=== PATIENT | male | born 1955 | race Caucasian/White ===

== ENCOUNTER 2020-07-04 12:38 | Outpatient (CLI) | payer MEDICARE, OTHER ==
--- NOTE | 2020-07-04 15:31 | EEG ---
DATE OF SERVICE: DESCRIPTION OF THE RECORD: The waking background is a medium amplitude 10 hertz alpha frequency. The patient became drowsy during the study. Hyperventilation and photic stimulation were unremarkable. No epileptiform features were seen. IMPRESSION: This is a normal awake and drowsy EEG. Job ID: [id number]
== END 2020-07-04 12:39 | disposition home or self-care (01) ==
LOC: EEG 12:38
PROVIDERS: ATTEND Psychiatry & Neurology Neurology
DX: R41.3 Other amnesia (principal)
CPT/HCPCS: 95816

== ENCOUNTER 2020-07-31 08:47 | Day surgery (SDC) | payer MEDICARE, OTHER ==
[2020-07-30 14:40] VITALS: BMI 26.5
[2020-07-31 09:52] VITALS: BP 153/79; TEMP 97.2
[2020-07-31] MEDS ORDERED: Acetaminophen 500 MG TAB ONE (10:18)
--- NOTE | 2020-07-31 11:39 | RAD ---
Exam: Lumbar puncture with fluoroscopic guidance HISTORY: Hydrocephalus. 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 Mild loss of dis c space and SPECT formation. Straightening of lumbar lordosis. No spondylolisthesis or spondylolysis. Successful lumbar puncture. Total of 30 cc of clear CSF was collected. No immediate or post procedure complication TECHNIQUE: Consent obtained to perform a lumbar puncture with fluoroscopic guidance. Patient's back w as evaluated. The L3-L4 level was deemed appropriate. Skin was prepped and draped in a sterile fashion. 1% lidocaine, buffered with sodium bicarbonate was used for local anesthesia. Under fluorosc opic guidance, 20-gauge spinal needle was advanced into the CSF space. Total of 30 cc of clear CSF was collected. Patient tolerated the procedure well. No immediate or postprocedural complications IMPRESSION: Successful lumbar puncture.
== END 2020-07-31 11:00 | disposition home or self-care (01) ==
LOC: RAD 08:47
PROVIDERS: ATTEND Neurological Surgery
PROC: 00JU3ZZ Inspection of Spinal Canal, Percutaneous Approach (ICD-10-PCS; principal; 2020-07-31)
DX: G91.9 Hydrocephalus, unspecified (principal); E03.9 Hypothyroidism, unspecified; E11.9 Type 2 diabetes mellitus without complications; I10 Essential (primary) hypertension; K21.9 Gastro-esophageal reflux disease without esophagitis; Z79.84 Long term (current) use of oral hypoglycemic drugs; Z79.899 Other long term (current) drug therapy; Z91.81 History of falling
CPT/HCPCS: 62270

== ENCOUNTER 2020-08-28 07:16 | Outpatient (CLI) | payer MEDICARE, OTHER ==
[2020-08-28 18:01] LABS: Hemoglobin 15.9 g/dL (14.0-18.0); Mean Corpuscular HGB CONC 34.2 G/DL (32.0-36.0); Mean Corpuscular Hemoglobin 33.2 PG (27.0-33.0); Mean Corpuscular Volume 97.1 fl (80.0-100.0); Mean Platelet Volume 10.8 fl (7.4-10.4); Platelet Count 176 10x3/uL (130-400); RBC Distribution Width 11.8 % (11.5-14.5); Red Blood Cell (RBC) Count 4.79 10x6/uL (4.40-5.80); White Blood Cell (WBC) Count 6.7 10x3/uL (4.5-11.0)
[2020-08-28 18:08] LABS: Anion Gap 13 mmol/L (10-20); BUN (Urea Nitrogen) 15 mg/dL (8.4-25.7); Calc. Creatinine Clearance 0 mL/min (70-130); Calcium 9.7 mg/dL (7.8-10.44); Carbon Dioxide 30 mmol/L (23-31); Chloride 101 mmol/L (98-107); Estimated GFR-MDRD 81; Glucose 166 mg/dL (80-115); Sodium 140 mmol/L (136-145)
[2020-08-29 03:03] LABS: SARS-CoV-2 MS2 Positive; SARS-CoV-2 N Gene Negative; SARS-CoV-2 S Gene Negative; SARS-CoV-2 by NAA Not Detected (NotDetected); SARS-CoV-2 orf1ab Negative
== END 2020-08-28 07:17 | disposition home or self-care (01) ==
LOC: LABBT 07:16
PROVIDERS: ATTEND Neurological Surgery
DX: Z01.812 Encounter for preprocedural laboratory examination (principal); G91.4 Hydrocephalus in diseases classified elsewhere; Z20.828 Contact with and (suspected) exposure to other viral communicable diseases
CPT/HCPCS: 80048; 85027; U0003; 87635

== ENCOUNTER 2020-08-28 18:00 | Inpatient (IN) | payer MEDICARE ==
[2020-08-29 14:52] VITALS: BMI 27.1
[2020-08-31] MEDS ORDERED: Midazolam HCl 2 mg/2 ml Vial ONE (06:20)
[2020-08-31] MEDS ORDERED: Fentanyl 250 MCG/5 ML VIAL ONE (06:20)
[2020-08-31] MEDS ORDERED: Bacitracin Zinc Ointment 30 gm TUBE ONE (06:33)
[2020-08-31] MEDS ORDERED: Bupivacaine PF 0.5% 30 ML VIAL ONE (06:34)
[2020-08-31] MEDS ORDERED: EPINEPHrine 1 MG/ML AMP ONE (06:34)
[2020-08-31] MEDS ORDERED: Lidocaine 0.5%/Epinephrine 1:200,000 50 ml Vial ONE (06:39)
[2020-08-31] MEDS ORDERED: Ondansetron HCl/PF 4 MG/2 ML Vial IVP PRN (08:28)
[2020-08-31] MEDS ORDERED: Promethazine HCl 25 MG/ML VIAL IM PRN (08:28)
[2020-08-31] MEDS ORDERED: Promethazine HCl 25 MG/ML VIAL SLOW IVP PRN (08:28)
[2020-08-31] MEDS ORDERED: Morphine 2 MG/ML VIAL SLOW IVP PRN (08:34)
[2020-08-31] MEDS ORDERED: Labetalol HCl 100 MG/20 ML VIAL SLOW IVP PRN (08:34)
[2020-08-31] MEDS ORDERED: Ondansetron PF 4 MG/2 ML Vial IVP PRN (08:34)
[2020-08-31] MEDS ORDERED: Docusate 100 MG CAP PO PRN (08:34)
[2020-08-31] MEDS ORDERED: diphenhydrAMINE 50 MG/ML VIAL IVP PRN (08:34)
[2020-08-31] MEDS ORDERED: hydrALAZINE 20 MG/ML VIAL SLOW IVP PRN (08:34)
[2020-08-31] MEDS ORDERED: Mag-Al 1200 mg/1200 mg/30 ML UDCUP PO PRN (08:34)
[2020-08-31] MEDS ORDERED: Cepastat Lozenges 1 LOZ PO PRN (08:34)
[2020-08-31] MEDS ORDERED: Fentanyl 100 MCG/2 ML VIAL ONE ×2 (09:08→10:02)
--- NOTE | 2020-08-31 10:12 | OP ---
DATE OF PROCEDURE: 08/31/2020 LINE ASSIGNER: Cuate Thorne PA-C INDICATION: Prevent neurologic decline. DIAGNOSIS: Normal-pressure hydrocephalus. PROCEDURE PERFORMED: Placement of ventriculoperitoneal shunt. ANESTHESIA: General. DESCRIPTION OF PROCEDURE: The patient was brought into the operating room and placed under general anesthesia. He was placed on the table in supine position. His head was turned to the left for exposure of the right occiput. A curvilinear incision was planned just above and behind the right ear and a separate incision was planned that was linear just beneath the xiphoid process. Both areas were prepped and draped in the usual sterile fashion. Following an appropriate operative pause, both incisions were created. Self-retaining retractors were placed to both incisions. A single alexandrea hole was placed at the occipital bone incision. A large trocar was passed from the cranial incision down to the abdominal incision where a peritoneal catheter was carefully placed. A cruciate incision was then placed within the dura and a 6-cm ventricular catheter was carefully advanced with one pass into the ventricular system where there was immediate egress of clear spinal fluid. The ventricular catheter was then connected to the valve assembly. It was secured into place carefully with suture. I then redirected my attention to the abdominal incision where I gained access to the peritoneal space and the peritoneal catheter was carefully placed without resistance into the peritoneal cavity. Both incisions were copiously irrigated. Both incisions were then closed in anatomic layers, and pressure dressings were applied. There were no known procedural complications. Job ID: [id number]
[2020-08-31] MEDS ORDERED: Metoclopramide HCl 10 MG/2 ML VIAL ONE (10:25)
[2020-08-31] MEDS ORDERED: Glycopyrrolate 0.2 MG/ML 5 ML SYRINGE ONE (10:25)
[2020-08-31] MEDS ORDERED: Rocuronium Bromide 10 MG/ML (10ML VIAL) ONE (10:25)
[2020-08-31] MEDS ORDERED: Ondansetron PF 4 MG/2 ML Vial ONE (10:25)
[2020-08-31] MEDS ORDERED: PROPOFOL 200 MG/20 ML VIAL ONE (10:25)
[2020-08-31] MEDS ORDERED: Lidocaine 1% PF 5 ML VIAL ONE (10:25)
[2020-08-31] MEDS: Hydrochlorothiazide 25 MG TAB PO SCH ×2 (11:43→20:52)
[2020-08-31] MEDS: Sodium Chloride 0.9% 1,000 ML IV SCH ×2 (11:43→22:12)
[2020-08-31] MEDS: Acetaminophen 325 MG TAB PO PRN ×3 (12:28→20:57)
[2020-08-31] MEDS ORDERED: CEFAZOLIN 2 GM in Premix Bag 1 BAG IVPB SCH (14:00)
[2020-08-31] MEDS: CEFAZOLIN 2 GM in Premix Bag 1 BAG IVPB SCH ×2 (14:19→21:04)
[2020-08-31] MEDS ORDERED: metFORMIN 500 MG TAB PO SCH (21:00)
[2020-08-31] MEDS ORDERED: Levothyroxine Sodium 50 MCG TAB PO SCH (21:00)
[2020-09-01] MEDS: Acetaminophen 325 MG TAB PO PRN ×2 (03:07→08:35)
[2020-09-01] MEDS: CEFAZOLIN 2 GM in Premix Bag 1 BAG IVPB SCH (05:20)
[2020-09-01 08:12] VITALS: BP 163/91; TEMP 98.4
[2020-09-01] MEDS: Hydrochlorothiazide 25 MG TAB PO SCH (08:35)
--- NOTE | 2020-09-01 08:52 | PRG ---
DATE OF SERVICE: 09/01/2020 SUBJECTIVE: Mr. 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 He feels well this morning. The abdominal incision is bit sore. He is already up and around and wants to go home before [employer] football game starts. OBJECTIVE: Neurological examination is stable. ASSESSMENT AND PLAN: We will leave the dressings on until tomorrow. They can be removed tomorrow. This will be two days after his surgery. At that time, showers can start, but this incision should not be submerged. He is going to moderate his activity for the first week after being home. Followup arrangements will be made with Dr. Shetty. He is ready for discharge. Job ID: [id number]
--- NOTE | 2020-09-02 13:38 | DIS ---
DATE OF ADMISSION: 08/31/2020 DATE OF DISCHARGE: 09/01/2020 HISTORY OF PRESENT ILLNESS: Mr. Steel is a 65-year-old male, who underwent a placement of ventriculoperitoneal shunt to prevent neurological decline given his normal-pressure hydrocephalus. Following his surgery, he was transitioned to the med/surg floor, where his pain has been well controlled with p.o. medications. He is tolerating a regular diet and voiding appropriately. He is, otherwise, doing well and ambulating easily in the hallways and feels that he is ready to go home today. PHYSICAL EXAMINATION: Today, he is awake, alert, in no acute distress. He has free active range of motion of all extremities. No focal motor weakness. No reflex asymmetry. His incision is clean, dry, and intact. PLAN: We will plan to discharge Mr. Steel home today. I have discussed home care precautions with him. CONDITION ON DISCHARGE: The patient had no emergencies. Condition was stable for discharge. MEDICATIONS: Home going medications were reviewed. FOLLOWUP: Followup arrangements made by our branch employment coordinator in the clinic and call to the patient. ACTIVITIES: Restrictions were reviewed in person. Wound care showers are acceptable. The patient should pat the incision dry, but not submerge it under the surface of a body of water for 1 month. Job ID: [id number]
== END 2020-09-01 16:08 | disposition home or self-care (01) | DRG 33 ==
LOC: SURG A 08-31 05:31 → SURG B 08-31 10:36 → EDSTATUS 08-31 18:00
PROVIDERS: ADMIT Neurological Surgery; ATTEND Neurological Surgery
PROC: 00163J6 Bypass Cerebral Ventricle to Peritoneal Cavity with Synthetic Substitute, Percutaneous Approach (ICD-10-PCS; principal; 2020-08-31)
DX: G91.2 (Idiopathic) normal pressure hydrocephalus (principal)
CPT/HCPCS: 80048; 85027; 87635; J0171; J0690; J2001; J2250; J2405; J2704; J2765; J3010; S0020; U0003

== ENCOUNTER 2023-04-02 09:54 | Day surgery (SDC) | payer MEDICARE, OTHER ==
[2023-04-01 10:28] VITALS: BMI 29.4
[2023-04-02] MEDS ORDERED: Lidocaine 1% w/Epinephrine 1:100K 20 ML VIAL ONE (10:21)
== END 2023-04-02 11:15 | disposition home or self-care (01) ==
LOC: SDC 09:54
PROVIDERS: ATTEND Internal Medicine Cardiovascular Disease
DX: I47.20 Ventricular tachycardia, unspecified (principal); R55 Syncope and collapse; I49.5 Sick sinus syndrome; E11.9 Type 2 diabetes mellitus without complications; I10 Essential (primary) hypertension; K21.9 Gastro-esophageal reflux disease without esophagitis; E03.9 Hypothyroidism, unspecified; Z79.84 Long term (current) use of oral hypoglycemic drugs; Z79.899 Other long term (current) drug therapy; Z79.890 Hormone replacement therapy
CPT/HCPCS: 33285; C1764

== ENCOUNTER 2023-11-12 19:35 | Observation (INO) | payer MEDICARE, OTHER ==
[~2023-11-12 19:35] MED LIST: Iopamidol-370 76% 500 ML MDV (1 ML CHARGE) ONE
[2023-11-12 20:13] LABS: #Monocytes 0.4 thou/uL (0.11-0.59); #Neutrophils 4.8 thou/uL (1.40-6.50); %Basophils 0.2 % (0.0-1.0); %Eosinophils 0.4 % (0.0-10.0); %Lymphocytes 8.8 % (21.0-51.0); %Monocytes 6.3 % (0.0-10.0); %Neutrophils 83.9 % (42.0-75.0); Hematocrit 41.6 % (42.0-52.0); Hemoglobin 14.4 g/dL (14.0-18.0); Mean Corpuscular HGB CONC 34.6 g/dL (32.0-36.0); Mean Corpuscular Hemoglobin 33.8 pg (27.0-31.0); Mean Corpuscular Volume 97.7 fl (78.0-98.0); Mean Platelet Volume 9.8 fL (7.4-10.4); Platelet Count 116 10x3/uL (130-400); RBC Distribution Width 12.9 % (11.5-14.5); Red Blood Cell (RBC) Count 4.26 mill/uL (4.70-6.10); White Blood Cell (WBC) Count 5.7 10x3/uL (4.8-10.8)
[2023-11-12 20:36] LABS: Acetaminophen Less than 10 mcg/mL (10.0-30.0); Alcohol Less than 10.0 mg/dL (Less than 10); Salicylate Less than 8.0 mg/dL (15.0-30.0)
[2023-11-12 20:37] LABS: ALT (SGPT) 25 U/L (8-55); AST (SGOT) 13 U/L (5-34); Albumin 4.3 g/dL (3.4-4.8); Alkaline Phosphatase 51 U/L (40-110); Anion Gap 14 mmol/L (10-20); BUN (Urea Nitrogen) 19 mg/dL (8.4-25.7); Bilirubin, Total 1.3 mg/dL (0.2-1.2); Calc. Creatinine Clearance 0 mL/min (70-130); Calcium 9.4 mg/dL (7.8-10.44); Carbon Dioxide 25 mmol/L (23-31); Chloride 102 mmol/L (98-107); Estimated GFR 56; Globulin 1.9 g/dL (2.4-3.5); Glucose 261 mg/dL (80-115); Lipase 22 U/L (8-78); Potassium 4.3 mmol/L (3.5-5.1); Protein, Total 6.2 g/dL (5.8-8.1); Sodium 137 mmol/L (136-145)
[2023-11-12 20:41] LABS: SARS-CoV-2 NAA Rapid Test Not Detected (NotDetected)
[2023-11-12 20:41] LABS: Troponin I Less than 0.010 ng/mL (< 0.028)
[2023-11-12] MEDS ORDERED: Acetaminophen 325 MG TAB PO PRN (21:57)
[2023-11-12] MEDS ORDERED: Senokot S 8.6-50 MG TAB PO PRN (21:57)
[2023-11-12] MEDS ORDERED: Calcium Carbonate 500 MG ChewTAB PO PRN (21:57)
[2023-11-12] MEDS ORDERED: Ondansetron PF 4 MG/2 ML Vial IVP PRN (21:57)
[2023-11-12] MEDS ORDERED: Dextrose 5% in Water 1,000 ML IV PRN (22:03)
[2023-11-12] MEDS ORDERED: Dextrose 50% Abboject 50 ML SYRINGE SLOW IVP PRN (22:03)
[2023-11-12] MEDS ORDERED: HumaLOG 300 UNITS/3 ML VIAL SC PRN ×2 (22:03)
[2023-11-12] MEDS ORDERED: Glucagon 1 MG/ML KIT IM PRN (22:03)
[2023-11-12 22:58] LABS: Bacteria/HPF None Seen HPF (None Seen); Bilirubin Negative (Negative); Blood, Urine Negative (Negative); CAUTI Indications for Culture Alt mental st,lethar; Clarity Clear (Clear); Glucose, Urine (Dipstick) >=1000 mg/dL (Negative); Ketone, Urine Negative (Negative); Leukocyte Negative Leu/uL (Negative); Nitrite Negative (Negative); Protein, Urine (Dipstick) Negative (Neg-Trace); RBC/HPF 0-3 HPF (0-3); Specific Gravity, Urine 1.043 (1.002-1.036); Squamous Epithelial None Seen HPF (0-3); Urobilinogen Normal mg/dL (Less than 2); WBC/HPF 0-3 HPF (0-3); pH, Urine 6.5 (5.0-9.0)
[2023-11-12 23:00] LABS: Urine Culture Reflex No No
[2023-11-12 23:07] LABS: Amphetamine Not Detected (NotDetected); Barbiturates Screen Not Detected (NotDetected); Benzodiazepine Screen Not Detected (NotDetected); Cocaine Metabolite Screen Not Detected (NotDetected); Methadone Not Detected (NotDetected); Methamphetamine Not Detected (NotDetected); Opiate Screen Not Detected (NotDetected); Oxycodone Screen Not Detected (NotDetected); Phencyclidine (PCP) Not Detected (NotDetected); THC/Cannabinoid Screen Not Detected (NotDetected); Tricyclic Screen Not Detected (NotDetected)
[2023-11-13] MEDS: Sodium Chloride 0.9% 1,000 ML IV SCH (01:17)
[2023-11-13 01:32] LABS: Troponin I Less than 0.010 ng/mL (< 0.028)
[2023-11-13 04:16] LABS: Hemoglobin A1c 6.7 % (4.0-6.0)
[2023-11-13 04:19] VITALS: BMI 35.4
[2023-11-13 04:20] LABS: #Monocytes 0.4 thou/uL (0.11-0.59); #Neutrophils 2.9 thou/uL (1.40-6.50); %Basophils 0.2 % (0.0-1.0); %Eosinophils 0.2 % (0.0-10.0); %Lymphocytes 20.3 % (21.0-51.0); %Neutrophils 69.1 % (42.0-75.0); Hematocrit 38.5 % (42.0-52.0); Hemoglobin 13.6 g/dL (14.0-18.0); Mean Corpuscular HGB CONC 35.3 g/dL (32.0-36.0); Mean Corpuscular Hemoglobin 33.7 pg (27.0-31.0); Mean Corpuscular Volume 95.3 fl (78.0-98.0); Mean Platelet Volume 10.2 fL (7.4-10.4); Platelet Count 97 10x3/uL (130-400); RBC Distribution Width 12.8 % (11.5-14.5); Red Blood Cell (RBC) Count 4.04 mill/uL (4.70-6.10); White Blood Cell (WBC) Count 4.2 10x3/uL (4.8-10.8)
[2023-11-13 04:33] LABS: ALT (SGPT) 19 U/L (8-55); AST (SGOT) 13 U/L (5-34); Albumin 3.7 g/dL (3.4-4.8); Alkaline Phosphatase 45 U/L (40-110); Anion Gap 10 mmol/L (10-20); BUN (Urea Nitrogen) 15 mg/dL (8.4-25.7); Bilirubin, Total 1.1 mg/dL (0.2-1.2); Calc. Creatinine Clearance 103 mL/min (70-130); Calcium 8.8 mg/dL (7.8-10.44); Carbon Dioxide 27 mmol/L (23-31); Chloride 104 mmol/L (98-107); Estimated GFR 78; Globulin 2.1 g/dL (2.4-3.5); Glucose 181 mg/dL (80-115); Potassium 3.7 mmol/L (3.5-5.1); Protein, Total 5.8 g/dL (5.8-8.1); Sodium 137 mmol/L (136-145)
[2023-11-13 04:36] LABS: Troponin I Less than 0.010 ng/mL (< 0.028)
[2023-11-13] MEDS ORDERED: Levothyroxine Sodium 100 MCG TAB ONE (06:46)
[2023-11-13] MEDS: Levothyroxine Sodium 50 MCG TAB PO SCH (07:12)
[2023-11-13] MEDS ORDERED: Enoxaparin 40 MG (0.4 mL) SYRINGE ONE (09:54)
[2023-11-13] MEDS ORDERED: Gabapentin 300 MG CAP ONE (09:54)
[2023-11-13] MEDS: Enoxaparin 40 MG (0.4 mL) SYRINGE SC SCH (10:02)
[2023-11-13] MEDS: Gabapentin 300 MG CAP PO SCH (10:02)
[2023-11-13 12:09] VITALS: BP 149/90; TEMP 97.9
== END 2023-11-13 11:40 | disposition home or self-care (01) ==
LOC: SUATTDRO 19:35 → ERS 19:35 → ERHOLD 22:05
PROVIDERS: ADMIT Internal Medicine; ATTEND Internal Medicine
DX: R55 Syncope and collapse (principal); I10 Essential (primary) hypertension; E11.65 Type 2 diabetes mellitus with hyperglycemia; E03.9 Hypothyroidism, unspecified; N40.0 Benign prostatic hyperplasia without lower urinary tract symptoms; Z79.890 Hormone replacement therapy; Z79.899 Other long term (current) drug therapy; Z79.84 Long term (current) use of oral hypoglycemic drugs; Z98.2 Presence of cerebrospinal fluid drainage device
CPT/HCPCS: 0240U; 70450; 71045; 71275; 75809; 80053; 80306; 80307; 81001; 83036; 83690; 83880; 84484 ×3; 85025; 85379; 93005; 93880; G0378 ×2; 36415; 84443; J1650; J7050; Q9967

== ENCOUNTER 2025-09-13 09:16 | Outpatient (CLI) | payer MEDICARE, OTHER | END 2025-09-13 09:17 | disposition home or self-care (01) | LOC: SCSRAD 09:16 | PROVIDERS: ATTEND Family Medicine Sports Medicine | DX: M25.521 Pain in right elbow (principal); M19.021 Primary osteoarthritis, right elbow; M67.921 Unspecified disorder of synovium and tendon, right upper arm; M25.421 Effusion, right elbow ==